=== PATIENT | male | born 1975 | race Caucasian/White ===

== ENCOUNTER 2018-08-12 14:17 | Emergency (ER) | payer OTHER ==
[~2018-08-12] VITALS: Ht 172.7 cm; Wt 108.9 kg
[~2018-08-12 14:17] MED LIST: OSEL75CA PO; TUSSIONEX PENNKI5 ML PO; ZANTAC300 MG PO
[2018-08-12] MEDS ORDERED: SKELAXIN800 MG PO (20:20)
[2018-08-12] MEDS ORDERED: NAPROXEN500 MG PO (20:20)
== END 2018-08-12 20:54 | disposition home or self-care (01) ==
LOC: ER 14:17
DX: M54.5 Low back pain (principal)

== ENCOUNTER 2021-03-17 08:45 | Outpatient (CLI) | payer OTHER ==
[~2021-03-17 08:45] MED LIST changes: +NAPROXEN500 MG PO; +SKELAXIN800 MG PO
== END 2021-03-17 08:57 | disposition home or self-care (01) ==
LOC: RX STUDY 08:45
PROVIDERS: ATTEND Specialist
DX: K21.9 Gastro-esophageal reflux disease without esophagitis (principal); R07.89 Other chest pain; R05 Cough

== ENCOUNTER 2021-07-01 11:12 | Outpatient (CLI) | payer OTHER | END 2021-07-01 11:24 | disposition home or self-care (01) | LOC: SONOGRAMA 11:12 | PROVIDERS: ATTEND Internal Medicine Gastroenterology | DX: K76.0 Fatty (change of) liver, not elsewhere classified (principal); K74.00 Hepatic fibrosis, unspecified ==

== ENCOUNTER 2022-03-25 08:36 | Outpatient (CLI) | payer OTHER | END 2022-03-25 08:42 | disposition home or self-care (01) | LOC: RAD 08:36 | DX: I20.9 Angina pectoris, unspecified (principal); I25.10 Atherosclerotic heart disease of native coronary artery without angina pectoris; I10 Essential (primary) hypertension; I49.9 Cardiac arrhythmia, unspecified ==